=== PATIENT | male | born 1990 | race Caucasian/White ===

== ENCOUNTER 2020-03-10 07:49 | Emergency (ER) | payer SELFPAY ==
[~2020-03-10] VITALS: Ht 165.1 cm; Wt 82.0 kg
[2020-03-10] MEDS ORDERED: ACETAMINOPHEN 325MG TABLET PO ONE (08:15)
[2020-03-10 08:18] VITALS: BP 141/85
[2020-03-10] MEDS ORDERED: AZIT250T12 MT (08:44)
[2020-03-10] MEDS ORDERED: ALBU6.7H9 INH (08:44)
[2020-03-10] MEDS ORDERED: CODE473S5 MT (08:47)
[2020-03-10] MEDS ORDERED: DEXT15LI5 MT (08:48)
[2020-03-10] MEDS ORDERED: PROMETHAZINE/DEXTROMETHORPHAN 6.25-15MG/5ML BOTTLE 120ML PO PRN (09:00)
[2020-03-10] MEDS ORDERED: ALBUTEROL 6.7GM HFA INHALER ORI ONE (09:00)
[2020-03-10] MEDS ORDERED: SODIUM CHLORIDE 0.9% 1,000 ML IV ONE (09:15)
== END 2020-03-10 10:24 | disposition home or self-care (01) ==
LOC: ER 08:03
DX: U07.1 COVID-19 (principal); J12.82 Pneumonia due to coronavirus disease 2019; Z98.890 Other specified postprocedural states; Z79.899 Other long term (current) drug therapy
CPT/HCPCS: 93005; 94640; 96360; 99283; J7030; Z7610